=== PATIENT | male | born 2000 | race Caucasian/White ===

== ENCOUNTER → 2022-09-03 | Outpatient (CLI) | payer OTHER ==
[~2022-09-03] MED LIST: AMOX500 PO; AMOX50SU PO; Amitriptyline H50 MG PO; CODACEE120 PO; CRUTCH2 XX; CYCL10 PO; IBUP800 PO; IBUPROFEN; MAGIC MOUTHWASH; NEOPOLHCSU OT; Naprosyn500 MG PO; ONDA4 PO; OXYACE5T PO; PANT40 PO; Pepcid20 MG PO; Percocet 5-3251 EACH PO; RXNEOPOLHC AD; Zofran Odt4 MG PO; Zofran Odt4 MG SL
== END | disposition home or self-care (01) ==
LOC: LAB SHORT 08:45 → LAB 08:45
DX: N39.9 Disorder of urinary system, unspecified (principal)
CPT/HCPCS: 87086